=== PATIENT | female | born 1950 | race Native Hawaiian/Other Pacific Islander ===

== ENCOUNTER 2017-04-22 11:37 | Outpatient (CLI) | payer OTHER | END 2017-04-22 19:36 | disposition home or self-care (01) | LOC: RAD 11:37 | DX: M81.0 Age-related osteoporosis without current pathological fracture (principal) ==

== ENCOUNTER 2017-07-10 09:53 | Outpatient (CLI) | payer OTHER | END 2017-07-10 10:55 | disposition home or self-care (01) | LOC: MAMMO 09:53 | DX: Z12.31 Encounter for screening mammogram for malignant neoplasm of breast (principal) ==

== ENCOUNTER 2019-10-11 11:12 | Outpatient (CLI) | payer OTHER | END 2019-10-11 21:50 | disposition home or self-care (01) | LOC: MAMMO 11:12 | DX: Z12.31 Encounter for screening mammogram for malignant neoplasm of breast (principal) ==

== ENCOUNTER 2019-10-29 14:10 | Outpatient (CLI) | payer OTHER | END 2019-10-29 19:54 | disposition home or self-care (01) | LOC: MRI 14:10 | DX: D32.0 Benign neoplasm of cerebral meninges (principal) | CPT/HCPCS: 36415; 82565; 84520; A9576 ==

== ENCOUNTER 2020-11-02 08:58 | Outpatient (CLI) | payer OTHER | END 2020-11-02 20:38 | disposition home or self-care (01) | LOC: MAMMO 08:58 | PROVIDERS: ATTEND Nurse Practitioner Family | DX: Z12.31 Encounter for screening mammogram for malignant neoplasm of breast (principal) ==

== ENCOUNTER 2021-03-19 09:20 | Outpatient (CLI) | payer OTHER | END 2021-03-19 21:46 | disposition home or self-care (01) | LOC: MAMMO 09:20 | PROVIDERS: ATTEND Nurse Practitioner Family | DX: N63.10 Unspecified lump in the right breast, unspecified quadrant (principal); N64.59 Other signs and symptoms in breast | CPT/HCPCS: G0279 ==

== ENCOUNTER 2021-12-11 08:54 | Outpatient (CLI) | payer OTHER | END 2021-12-11 19:03 | disposition home or self-care (01) | LOC: MRI 08:54 | PROVIDERS: ATTEND Nurse Practitioner Family | DX: M54.17 Radiculopathy, lumbosacral region (principal) ==